=== PATIENT | male | born 1975 | race Caucasian/White ===

== ENCOUNTER 2022-09-01 09:21 | Emergency (ER) | payer OTHER ==
[~2022-09-01] VITALS: Ht 170.2 cm; Wt 97.1 kg
[2022-09-01 09:30] VITALS: BP 116/78
--- NOTE | 2022-09-01 10:21 | NUR ---
AMBULATED TO BED 2, DR KENT AT BEDSIDE
[2022-09-01] MEDS ORDERED: NAPR-1704 PO (11:27)
[2022-09-01 11:45] VITALS: BP 116/78
== END 2022-09-01 11:45 | disposition home or self-care (01) ==
LOC: MED 09:21
DX: S41.032A Puncture wound without foreign body of left shoulder, initial encounter (principal); W01.0XXA Fall on same level from slipping, tripping and stumbling without subsequent striking against object, initial encounter; Y93.89 Activity, other specified; Y92.89 Other specified places as the place of occurrence of the external cause; Y99.8 Other external cause status
CPT/HCPCS: 73030; 99283